=== PATIENT | female | born 1995 | race African-American/Black ===

== ENCOUNTER 2024-12-14 08:31 | Emergency (ER) | payer OTHER, SELFPAY ==
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
[2024-12-14 08:36] VITALS: BP 104/70; PULSE 103; RESP 18; TEMP 36.8; O2SAT 98
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
[2024-12-14] MEDS: ACETAMINOPHEN 500 MG TABLET 1000 MG PO (09:33)
[2024-12-14 10:49] VITALS: BP 110/78; PULSE 70; RESP 17; O2SAT 100
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
== END 2024-12-14 10:51 | disposition home or self-care (01) ==
PROVIDERS: Emergency Provider Physician Assistant
DX: S16.1XXA Strain of muscle, fascia and tendon at neck level, initial encounter (principal); V49.40XA Driver injured in collision with unspecified motor vehicles in traffic accident, initial encounter
CPT/HCPCS: 70450; 72125; 73030; 99284; A9270